=== PATIENT | female | born 1955 | race Two or more races ===

== ENCOUNTER → 2024-03-14 | Outpatient (CLI) | payer OTHER, SELFPAY ==
--- NOTE | 2024-03-14 12:20 | XR_ITS ---
Examination: Bone densitometry Date and time of exam:March 14, 2024 1017 hours INDICATIONS: Menopause age 47 postmenopausal lumbar fracture Technique: Lumbar spine and hip total bone mineralization values of an calculated. Peak reference and age match control results have been displayed. Findings: Lumbar spine total bone mineralization is0.798 gm/cm2. This is 2.3 standard deviations below peak reference. This is 0.4 standard deviations below age-matched controls. Hip total bone mineralization is 0.871 gm/cm2 This is 0.7 standard deviations below peak reference. This is 0.5 standard deviations above age-matched controls Impression: There is osteopenia based on lumbar spine measurements. There is osteopenia based on hip measurements
== END | disposition home or self-care (01) ==
LOC: CDIM 10:03
PROVIDERS: Referring Provider Specialist; Visit Provider Specialist
DX: M85.89 Other specified disorders of bone density and structure, multiple sites (principal)
CPT/HCPCS: 77080

== ENCOUNTER → 2024-04-06 | Outpatient (CLI) | payer OTHER, MEDICAID, SELFPAY ==
--- NOTE | 2024-04-06 10:07 | XR_ITS ---
Examination: PA lateral chest 2 views TECHNIQUE: Upright PA lateral chest 2 views Exam date and time: April 06, 2024 1018 hours Comparison August 12, 2022 INDICATIONS: Preop hysterectomy FINDINGS: Normal heart size Surgical clips right mediastinum Mildly prominent right paratracheal region again noted Increased AP dimension chest on the lateral view Stable probable scarring in the lingular segment obscuring detail left cardiac contour No interval pneumonia or pulmonary edema Prominent osteopenia Subtle 3 cm rounded density at the right cardiophrenic angle IMPRESSION: Subtle 3 cm rounded density at the right cardiophrenic angle, recommend AP lordotic chest follow-up
== END | disposition home or self-care (01) ==
LOC: CDIM 09:56
PROVIDERS: Referring Provider Physician Assistant; Visit Provider Physician Assistant
DX: Z01.818 Encounter for other preprocedural examination (principal)
CPT/HCPCS: 71046

== ENCOUNTER 2024-04-17 03:13 | Emergency (ER) | payer OTHER, MEDICAID, SELFPAY ==
[2024-04-17 03:14] VITALS: BMI 39.0
[2024-04-17 03:23] VITALS: BP 144/90; PULSE 92; RESP 17; TEMP 36.9; O2SAT 98
--- NOTE | 2024-04-17 03:35 | XR_ITS ---
Examination: PA lateral chest 2 views Technique: Upright AP lateral chest 2 views Exam date and time: April 17, 2024 0337 hrs. Comparison April 06, 2024 Indications: Chest pain beginning yesterday afternoon Findings: Normal heart size No lobar pneumonia Moderate thoracic spondylosis On this study the trachea is deviated to the right Impression: No pneumonia or pulmonary edema Consider thyroid sonography follow-up to exclude left thyromegaly shifting the trachea to the right
--- NOTE | 2024-04-17 03:37 | PD.EDRME ---
Rapid Medical Screening Exam RME Arrival date/time: 04/17/24 03:13 68-year-old obese female past medical history of hypertension and hyperlipidemia presents emergency department complaining of cough and chest pain that radiates to the left arm and upper neck that started yesterday. Chief Complaint: Chest Pain Time Seen by Provider: 04/17/24 03:30 Vital signs: Vital Signs Temperature 98.5 F 04/17/24 03:23 Pulse Rate 92 04/17/24 03:23 Respiratory Rate 17 04/17/24 03:23 Blood Pressure 144/90 H 04/17/24 03:23 Pulse Oximetry (%) 98 04/17/24 03:23 Oxygen Delivery Method Room Air 04/17/24 03:23 Vital signs reviewed by provider: Yes
[2024-04-17] MEDS: ACETAMINOPHEN 500 MG TABLET 1000 MG PO (03:53)
[2024-04-17 04:07] LABS: Basophils # (Auto) 0.1 Thou/mm3 (0.0-0.2); Basophils % (Auto) 1 % (0-2.5); Eosinophils # (Auto) 0.3 Thou/mm3 (0.0-0.5); Eosinophils % (Auto) 3 % (0-10); Hematocrit 42.1 % (36.0-46.0); Hemoglobin 13.8 g/dL (12.0-16.0); Immature Granulocytes % (Auto) 0 % (0-0); Immature Granulocytes Auto 0.02 Thou/mm3 (0.00-0.00); Lymphocytes # (Auto) 3.4 Thou/mm3 (1.0-4.8); Lymphocytes % (Auto) 33 % (10-50); Mean Corpuscular HGB Conc 32.8 g/dl (31.0-37.0); Mean Corpuscular Hemoglobin 29.5 pg (25.0-35.0); Mean Corpuscular Volume 90 fL (80-100); Monocytes # (Auto) 0.9 Thou/mm3 (0.0-0.8); Monocytes % (Auto) 8 % (0-12); Neutrophils # (Auto) 5.8 Thou/mm3 (1.8-7.7); Neutrophils % (Auto) 56 % (37-80); Nucleated Red Blood Cell % 0 /100 WBC (0); Platelet Count 243 Thou/mm3 (140-440); RDW Standard Deviation 43.1 fL (36.4-46.3); Red Blood Count 4.68 Miln/mm3 (4.00-5.20); White Blood Count 10.4 Thou/mm3 (3.6-11.0)
[2024-04-17 04:24] LABS: B-Type Natriuretic Peptide < 20 pg/mL (0-100)
[2024-04-17 04:26] LABS: Alanine Aminotransferase 17 U/L (10-49); Albumin, Serum 4.5 gm/dL (3.4-4.8); Albumin/Globulin Ratio 1.4 (1.2-2.2); Alkaline Phosphatase 106 U/L (46-116); Anion Gap 9 (7-16); Aspartate Amino Transferase 22 U/L (0-34); BUN/Creatinine Ratio 22 Ratio (12-20); Bilirubin,Total 0.6 mg/dL (0.3-1.2); Blood Urea Nitrogen 22 mg/dL (9-23); Calcium 9.7 mg/dL (8.3-10.6); Calcium (Corrected) 9.7 mg/dL (8.5-10.1); Chloride 109 mMol/L (98-107); Estimated Creatinine Clearance 55.6 mL/min (>60); Globulin 3.2 gm/dL (2.3-3.5); Glucose 94 mg/dL (74-106); Magnesium 2.2 mg/dL (1.6-2.6); Osmolality,Calculated 292 (275-295); Sodium 145 mMol/L (136-145); Total Protein 7.7 gm/dL (5.7-8.2); Troponin I < 0.020 ng/mL (0.0-0.045); eGFR > 60 See Note
[2024-04-17 06:17] VITALS: BP 136/79; PULSE 79; RESP 16; O2SAT 96
--- NOTE | 2024-04-17 06:18 | EDNOTE_ITS ---
ED Chest Pain RME/HPI General Chief Complaint: Chest Pain Stated Complaint: CHEST AND BACK PAIN X 1 DAY Time Seen by Provider: 04/17/24 03:30 Arrival date/time: 04/17/24 03:13 RME / HPI RME / HPI narrative: 04/17/24 03:13 68-year-old obese female past medical history of hypertension and hyperlipidemia presents emergency department complaining of cough and chest pain that radiates to the left arm and upper neck that started yesterday. This section includes all my notes and documentations, including HPI, PE, and ED course. Tono Hernandes MD HPI: 68-year-old female here with about a week history of worsening cough, productive cough, purulent sputum, and dyspnea. And since yesterday, she reports chest pain and upper back pain especially with coughing. No fever. No other complaints. ROS: All negative except as documented in HPI. Physical Exam: General: Alert and oriented. Hacking cough noted. Eyes: Conjunctivae and lids clear. ENT: No nasal congestion. Pharynx normal. TM normal bilaterally. Neck: Supple. Heart: RRR. Lungs: No respiratory distress. Good air movement with scattered rhonchi. Chest: Palpation of the anterior chest reproduces her pain. Abdomen: Soft and nontender. Normal bowel sounds. No distension. No rebound or guarding. Back: No CVA tenderness. Skin: Warm and dry. Neuro: Alert and oriented X 3. I reviewed all diagnostic test results. My interpretation of the EKG is sinus rhythm with nonspecific ST?T changes. My interpretation of the chest x-ray is increased bronchial markings, official radiology report is pending. Blood tests and urine tests unremarkable, including negative troponin. At this point, diagnoses include bronchitis. Treatment here included Zithromax. Significant improvement Recommended more outpatient cardiac workup. Based on my best medical judgment, made decision no further evaluation or treatment indicated at this time. Patient understands and agrees to the discharge instructions customized and printed, see below. Discharge instructions from Dr. Hernandes: --After evaluation, there is no life-threatening condition such as heart attack. You have bronchitis, infection of the airways. --No physical exertion for 3 days to help rest the lungs. ?-No smoking or exposure to smoking or pets or dust or cold or humidity. --Zithromax to kill the germs causing the bronchitis. --Prednisone to help decrease the swelling in the airways. --See a private doctor on 04/19/2024 for recheck. To make sure there is no serious underlying heart condition, ask to help you get more tests for your heart that cannot be done here in the ER. Such as Holter Monitor (cardiac monitoring at home from a day to even a month), heart stress test (on treadmill or with medication), echocardiogram (imaging of your heart structures), heart catherization (checking for blockages in your heart arteries), and a referral to see a [employer] Crossing Protection Maintainer. --Seek immediate medical care with worsening or with any concerns. Tono Hernandes MD Related Data Home Medications ?Medication ?Instructions ?Recorded ?Confirmed atorvastatin 10 mg tablet 10 mg PO QPM 10/20/18 12/20/21 levothyroxine 112 mcg tablet 112 mcg PO QDAY 10/20/18 12/20/21 lisinopril 20 mg tablet 20 mg PO QDAY 10/20/18 12/20/21 nabumetone 500 mg tablet 500 mg PO BID 10/20/18 12/20/21 Previous Rx's ?Medication ?Instructions ?Recorded hydrocodone 5 mg-acetaminophen 325 1 tab PO BID PRN pain #10 tabs 08/12/22 mg tablet azithromycin 500 mg tablet 500 mg PO QDAY 3 days #3 tabs 04/17/24 (Zithromax TRI-ANNETTE) prednisone 20 mg tablet 40 mg PO DAILY 3 days #6 tabs 04/17/24 Allergies Allergy/AdvReac Type Severity Reaction Status Date / Time Penicillins Allergy Severe DIFF Verified 12/09/23 18:26 BREATHING, RASH Review of Systems Review of Systems Systems Reviewed: All systems reviewed, normal except as documented Past Medical History Past Medical History NEUROLOGIC: Negative Neurological Disorders or Seizures CARDIAC: Positive Cardiac Disorders, Hypercholesterolemia and Hypertension RESPIRATORY: Negative Chronic Obstructive Pulmonary Disease (COPD) GASTROINTESTINAL: Positive Gastrointestinal Disorders, Gall Bladder Disease, Gastrointestinal Bleed, Ulcer, Gastroesophageal Reflux Disease and Obesity GENITOURINARY: Negative Genitourinary Disorders or Renal Disease REPRODUCTIVE: Positive Previous Pregnancies MUSCULOSKELETAL: Positive Musculoskeletal Disorders and Arthritis ENDOCRINE: Positive Endocrine Disorders and Hyperthyroidism HEMATOLOGIC: Negative Blood Disorders OTHER HISTORY: Positive Measles Family History FAMILY HISTORY: Positive Family Cardiac Disorders; Negative Family Neurologic Problems Surgical History SURGICAL: Positive Joint Replacement and Tubal Ligation; Negative Cardiac Surgery Social History SMOKING STATUS: Never smoker ED Exam Narrative Physical exam: As noted in HPI Course Course Course Narrative: chest xray ordered to help determine etiology of cough. Quality Measures none Orders Category Date Time Status Bedside Influenza A&B Antigen Test NOW Care 04/17/24 03:35 Completed EKG (ED ONLY) *Do not use* NOW Care 04/17/24 03:35 Completed Straight [In and Out Catheter] X1 Care 04/17/24 06:17 Active EKG (ED Only) Stat Exams 04/17/24 03:35 Ordered XR chest 2V Stat Exams 04/17/24 03:35 Taken B-Type Natriuretic Peptide Stat Lab 04/17/24 03:49 Completed CBC Stat Lab 04/17/24 03:49 Completed Comprehensive Metabolic Panel Stat Lab 04/17/24 03:49 Completed Magnesium Stat Lab 04/17/24 03:49 Completed Partial Thromboplastin Time Stat Lab 04/17/24 03:49 Completed Prothrombin Time with INR Stat Lab 04/17/24 03:49 Completed Troponin I Stat Lab 04/17/24 03:49 Completed Urinalysis Stat Lab 04/17/24 05:44 Completed Acetaminophen Tab [Tylenol ES Tab] Med 04/17/24 03:37 Discontinued 1,000 mg PO X1 ONE Azithromycin Po [Zithromax PO] Med 04/17/24 07:18 Discontinued 500 mg PO X1 ONE Morphine Inj Med 04/17/24 06:19 Discontinued 2 mg IVP X1 ONE Morphine Inj Med 04/17/24 07:53 Discontinued 2 mg IVP X1 ONE Vital Signs Vital signs: Vital Signs Temperature 98.5 F 04/17/24 03:23 Pulse Rate 92 04/17/24 03:23 Respiratory Rate 17 04/17/24 03:23 Blood Pressure 144/90 H 04/17/24 03:23 Pulse Oximetry (%) 98 04/17/24 03:23 Oxygen Delivery Method Room Air 04/17/24 03:23 Pulse ox is 98% on room air which is adequate. Chest Pain Patient data External records reviewed:: [facility] previous records (I reviewed ED visit on 12/09/2023) Clinical information provided by:: patient Social determinants that could affect healthcare access:: none Patient has the following chronic illnesses:: Hypertension, hyperlipidemia, hypothyroidism How is presenting disease/condition affected by chronic disease/condition?: exacerbated by Evaluation data The following diagnostics were reviewed and interpreted by me:: lab results, radiology exam(s) and EKG tracing(s) (My interpretation of the EKG is: Sinus rhythm (95 bpm) with nonspecific ST-T changes. Tono Hernandes MD) Lab and/or radiology exams considered but not ordered:: None Interpretation Summary: My interpretation of the chest x-ray is increased bronchial markings, official radiology report is pending. Medications / Prescriptions Medications or Prescriptions considered but not ordered:: None Medication administrations:: Medication Administration History Discontinued Medications Acetaminophen (Acetaminophen 500 Mg Tablet) 1,000 mg PO X1 ONE Stop: 04/17/24 03:38 Last Admin: 04/17/24 03:53 Dose: 1,000 mg Documented By: SE Azithromycin (Azithromycin 250 Mg Tablet) 500 mg PO X1 ONE Stop: 04/17/24 07:19 Morphine Sulfate (Morphine Sulf Inj 10 Mg/Ml Vial) 2 mg IVP X1 ONE Stop: 04/17/24 06:20 Last Admin: 04/17/24 06:31 Dose: 2 mg Documented By: KG Morphine Sulfate (Morphine Sulf Inj 10 Mg/Ml Vial) 2 mg IVP X1 ONE Stop: 04/17/24 07:54 See above Consultations Consultation(s) initiated? (list below): No Diagnosis Most likely diagnosis given after review of the tests above:: Bronchitis Admission Indicated Admission indicated?: not indicated Explain why admission is indicated or not indicated:: Does not meet admission criteria Admission Request Was there a request for admission?: No Disposition Plan Disposition Plan: Discharge Discharge Attestation Discharge Attestation: The patient and all family members were given an opportunity to ask questions and understood the discharge instructions. Discharge instructions specifically effects, indications for sooner follow up or return to the emergency department, and the expected course of current diagnosis. Patient condition: Stable Discharge Plan Plan Patient Disposition: HOME (Self Care) Prescriptions/Referrals Prescriptions/Med Rec: New prednisone 20 mg tablet 40 mg PO DAILY 3 Days Qty: 6 0RF Taper: Prednisone Taper 20 mg DAILY for 2 Days and 0 Hour 10 mg DAILY for 2 Days and 0 Hour 5 mg DAILY for 7 Days and 0 Hour azithromycin [Zithromax TRI-ANNETTE] 500 mg tablet 500 mg PO QDAY 3 Days Qty: 3 0RF No Action atorvastatin 10 mg Tablet 10 mg PO QPM lisinopril 20 mg Tablet 20 mg PO QDAY levothyroxine 112 mcg Tablet 112 mcg PO QDAY nabumetone 500 mg Tablet 500 mg PO BID hydrocodone-acetaminophen 5-325 mg tablet 1 tab PO BID MDD 10 PRN (Reason: pain) Qty: 10 0RF Problem List Clinical Impression: Bronchitis Patient/Caregiver Discharge Instructions Discharge Activity: activity as tolerated Education Materials: ED Bronchitis with Wheezing (Adult) Additional Instructions: Discharge instructions from Dr. Hernandes: --After evaluation, there is no life-threatening condition such as heart attack. You have bronchitis, infection of the airways. --No physical exertion for 3 days to help rest the lungs. ?-No smoking or exposure to smoking or pets or dust or cold or humidity. --Zithromax to kill the germs causing the bronchitis. --Prednisone to help decrease the swelling in the airways. --See a private doctor on 04/19/2024 for recheck. To make sure there is no serious underlying heart condition, ask to help you get more tests for your heart that cannot be done here in the ER. Such as Holter Monitor (cardiac monitoring at home from a day to even a month), heart stress test (on treadmill or with medication), echocardiogram (imaging of your heart structures), heart catherization (checking for blockages in your heart arteries), and a referral to see a [employer] Crossing Protection Maintainer. --Seek immediate medical care with worsening or with any concerns. Instrucciones de jaylon del Dr. Hernandes: --Despu?s de la evaluaci?n, no hay ninguna afecci?n que ponga en peligro la keron, dougie un ataque card?aco. Tiene bronquitis, infecci?n de las v?as respiratorias. --No thor leonel?n esfuerzo f?sico nathan 3 d?as para ayudar a que los pulmones descansen. --No fume ni se exponga al humo, a las mascotas, al polvo, al fr?o o a la humedad. --Zithromax para matar los g?rmenes que causan la bronquitis. --Prednisona para ayudar a disminuir la hinchaz?n de las v?as respiratorias. --Michael a un m?dico privado el 12/10/2024 para que lo vuelvan a controlar. Para asegurarse de que no haya gaurav afecci?n card?brandon subyacente grave, pida ayuda para que le kianna m?s pruebas para el coraz?n que no se pueden hacer aqu? en la sol de emergencias, dougie un monitor Holter (monitoreo card?aco en el hogar desde un d?a hasta un mes), gaurav prueba de esfuerzo card?aco (en gaurav cinta de correr o con medicaci?n), un ecocardiograma (im?genes de las estructuras del coraz?n), un cateterismo card?aco (para comprobar si hay obstrucciones en las arterias del coraz?n) y gaurav derivaci?n para morena a un cardi?logo. --Busque atenci?n m?dica inmediata si la enfermedad empeora o tiene alguna inquietud. Print Language: [place] Stand Alone Forms: Dominique Award Info., Patient Portal Info Letter
[2024-04-17] MEDS: MORPHINE SULF INJ 10 MG/ML VIAL 2 MG IVP ×2 (06:31→08:09)
[2024-04-17 06:50] LABS: Collection Type, Urine Clean Catch
[2024-04-17 06:59] VITALS: TEMP 36.6
[2024-04-17 07:23] LABS: INR 1.1 (0.9-1.3); Partial Thromboplastin Time 32.1 Seconds (22.0-36.0); Prothrombin Time 11.6 Seconds (9.0-12.2)
[2024-04-17 07:41] LABS: Bacteria,Urine Rare; Bilirubin,Urine Negative (Negative); Blood,Urine Trace (Negative); Clarity,Urine Clear (Clear/Hazy); Color,Urine Yellow (Lt Yel-Yel); Glucose, Urine Negative (Negative); Hyaline Casts,Urine < 1 /hpf (0-1); Ketones,Urine Negative (Negative); Leukocyte Esterase,Urine Positive (Negative); Nitrite,Urine Negative (Negative); PH,Urine 5.5 (5.0-7.0); Protein,Urine Negative (Neg - Trace); RBC,Urine 6 /hpf (0-3); Specific Gravity,Urine 1.024 (1.001-1.035); Squamous Epithelial Cell,Urine 6 /hpf (0-5); Urobilinogen,Urine Negative mg/dL (0.0-1.0); WBC,Urine 21 /hpf (0-5)
--- NOTE | 2024-04-17 07:52 | PC.NURSE ---
Patient states pain 8/10. Informed ER provider and received verbal order for 2 mg morphine IV.
[2024-04-17] MEDS: AZITHROMYCIN 250 MG TABLET 500 MG PO (08:08)
== END 2024-04-17 08:46 | disposition home or self-care (01) ==
PROVIDERS: Emergency Provider Emergency Medicine
DX: J40 Bronchitis, not specified as acute or chronic (principal); E78.5 Hyperlipidemia, unspecified; I10 Essential (primary) hypertension
CPT/HCPCS: 36415; 71046; 80053; 81001; 83735; 83880; 84484; 85025; 85610; 85730; 87400; 93005; 96374; 96376; 99285; J2270; A9270

== ENCOUNTER → 2024-05-31 | Outpatient (CLI) | payer OTHER, MEDICAID, SELFPAY ==
--- NOTE | 2024-05-31 10:15 | XR_ITS ---
Examination: Thyroid sonography complete TECHNIQUE: Grayscale sonographic images thyroid lobes Exam date and time: May 31, 2024 1020 hours INDICATIONS: Chest x-ray April 17, 2024 deviation trachea to the right, consider thyromegaly FINDINGS: Right thyroid 2.7 x 1.1 x 1.3 cm No thyroid 3.0 x 1.1 x 0.9 cm No thyroid nodules IMPRESSION: Negative for thyromegaly Consider follow-up CT chest post intravenous contrast to assess etiology of the tracheal deviation
== END | disposition home or self-care (01) ==
LOC: CDIM 10:03
PROVIDERS: PCP Family Medicine; Referring Provider Obstetrics & Gynecology; Visit Provider Obstetrics & Gynecology
DX: J39.8 Other specified diseases of upper respiratory tract (principal)
CPT/HCPCS: 76536

== ENCOUNTER 2024-06-24 11:34 | Emergency (ER) | payer OTHER, MEDICAID, SELFPAY ==
[2024-06-24 11:35] VITALS: BMI 39.0
[2024-06-24 11:39] VITALS: BP 139/76; PULSE 77; RESP 20; TEMP 37.1; O2SAT 97
--- NOTE | 2024-06-24 11:45 | XR_ITS ---
Examination: PA lateral chest 2 views Technique: Upright PA lateral chest 2 views Exam date and time: June 24, 2024 1137 hrs. Indications: Coughing beginning 3 days ago. Findings: Normal heart size No pneumonia identified Moderate osteopenia Impression: No pneumonia identified
--- NOTE | 2024-06-24 11:45 | EKG_ITS ---
[facility] Test Date: 2024-06-24 Pat Name: JESUS MALONEY Department: Room: - Gender: Female Vapor Coater: : 1955 Requested By: Joe Freedman Order Number: [id number] Reading MD: Joe Freedman Measurements Intervals [place] Rate: 79 P: -3 IN: 133 QRS: -6 QRSD: 99 T: 65 QT: 315 QTc: 363 Interpretive Statements SINUS RHYTHM MODERATE VOLTAGE CRITERIA FOR LVH, CONSIDER NORMAL VARIANT [MEETS CRITERIA IN ONE OF: R(aVL), S(V1), R(V5), R(V5/V6)+S(V1)] NONSPECIFIC T-WAVE ABNORMALITY Compared to ECG 12/09/2023 18:55:30 T-wave abnormality now present Intraventricular conduction delay no longer present /store/S0/[id number]/[id number].pdf
--- NOTE | 2024-06-24 11:46 | PD.EDRME ---
Rapid Medical Screening Exam RME Arrival date/time: 06/24/24 11:34 68-year-old female with a history of hypertension, hypothyroidism and hyperlipidemia presents to the emergency room with a chief complaint of 8 out of 10 sternal chest pain and shortness of breath x 1 day I have greeted and performed a focused initial assessment of this patient. A comprehensive ED assessment and evaluation of the patient, analysis of all test results, and completion of the medical decision making process will be conducted by additional ED providers. Chief Complaint: Shortness of Breath/Dyspnea Vital signs: Vital Signs Temperature 98.8 F 06/24/24 11:39 Pulse Rate 77 06/24/24 11:39 Respiratory Rate 20 06/24/24 11:39 Blood Pressure 139/76 H 06/24/24 11:39 Pulse Oximetry (%) 97 06/24/24 11:39 Oxygen Delivery Method Room Air 06/24/24 11:39 Vital signs reviewed by provider: Yes
[2024-06-24 12:36] LABS: Basophils % (Auto) 1 % (0-2.5); Eosinophils # (Auto) 0.1 Thou/mm3 (0.0-0.5); Eosinophils % (Auto) 1 % (0-10); Hematocrit 40.9 % (36.0-46.0); Hemoglobin 13.7 g/dL (12.0-16.0); Immature Granulocytes % (Auto) 0 % (0-0); Immature Granulocytes Auto 0.01 Thou/mm3 (0.00-0.00); Lymphocytes # (Auto) 2.7 Thou/mm3 (1.0-4.8); Lymphocytes % (Auto) 33 % (10-50); Mean Corpuscular HGB Conc 33.5 g/dl (31.0-37.0); Mean Corpuscular Hemoglobin 29.6 pg (25.0-35.0); Mean Corpuscular Volume 88 fL (80-100); Monocytes # (Auto) 1.3 Thou/mm3 (0.0-0.8); Monocytes % (Auto) 16 % (0-12); Neutrophils # (Auto) 3.9 Thou/mm3 (1.8-7.7); Neutrophils % (Auto) 49 % (37-80); Nucleated Red Blood Cell % 0 /100 WBC (0); Platelet Count 223 Thou/mm3 (140-440); RDW Standard Deviation 39.8 fL (36.4-46.3); Red Blood Count 4.63 Miln/mm3 (4.00-5.20)
[2024-06-24 12:41] LABS: Collection Type, Urine Clean Catch
[2024-06-24 12:53] LABS: B-Type Natriuretic Peptide 22 pg/mL (0-100)
[2024-06-24 12:55] LABS: Bilirubin,Urine Negative (Negative); Blood,Urine Trace (Negative); Clarity,Urine Clear (Clear/Hazy); Color,Urine Lt-Yellow (Lt Yel-Yel); Glucose, Urine Negative (Negative); Ketones,Urine Negative (Negative); Leukocyte Esterase,Urine Negative (Negative); Nitrite,Urine Negative (Negative); Protein,Urine Negative (Neg - Trace); RBC,Urine 1 /hpf (0-3); Specific Gravity,Urine 1.008 (1.001-1.035); Squamous Epithelial Cell,Urine < 1 /hpf (0-5); Urobilinogen,Urine Negative mg/dL (0.0-1.0); WBC,Urine 1 /hpf (0-5)
[2024-06-24 12:56] LABS: Alanine Aminotransferase 18 U/L (10-49); Albumin, Serum 4.1 gm/dL (3.4-4.8); Albumin/Globulin Ratio 1.4 (1.2-2.2); Alkaline Phosphatase 85 U/L (46-116); Anion Gap 10 (7-16); Aspartate Amino Transferase 18 U/L (0-34); BUN/Creatinine Ratio 11 Ratio (12-20); Blood Urea Nitrogen 10 mg/dL (9-23); Carbon Dioxide 25.6 mMol/L (20.0-31.0); Chloride 105 mMol/L (98-107); Creatinine (Component) 0.9 mg/dL (0.6-1.3); Estimated Creatinine Clearance 61.7 mL/min (>60); Globulin 2.9 gm/dL (2.3-3.5); Glucose 90 mg/dL (74-106); Osmolality,Calculated 280 (275-295); Potassium 3.3 mMol/L (3.4-5.1); Sodium 141 mMol/L (136-145); Troponin I < 0.020 ng/mL (0.0-0.045); eGFR > 60 See Note
--- NOTE | 2024-06-24 14:01 | PD.EDSOB ---
ED SOB =RME/HPI General Chief Complaint: Shortness of Breath/Dyspnea Stated Complaint: SOB SINCE YESTERDAY, CHEST PAIN, COUGH Time Seen by Provider: 06/24/24 11:55 Arrival date/time: 06/24/24 11:34 This is a 68-year-old female that comes in with complaints of cough, shortness of breath, sore throat that started since yesterday. Patient has a past medical history of high blood pressure, and hyperlipidemia. RME / HPI RME / HPI Narrative: 06/24/24 11:34 68-year-old female with a history of hypertension, hypothyroidism and hyperlipidemia presents to the emergency room with a chief complaint of 8 out of 10 sternal chest pain and shortness of breath x 1 day I have greeted and performed a focused initial assessment of this patient. A comprehensive ED assessment and evaluation of the patient, analysis of all test results, and completion of the medical decision making process will be conducted by additional ED providers. Related Data Home Medications ?Medication ?Instructions ?Recorded ?Confirmed atorvastatin 10 mg tablet 10 mg PO QPM 10/20/18 12/20/21 levothyroxine 112 mcg tablet 112 mcg PO QDAY 10/20/18 12/20/21 lisinopril 20 mg tablet 20 mg PO QDAY 10/20/18 12/20/21 nabumetone 500 mg tablet 500 mg PO BID 10/20/18 12/20/21 Previous Rx's ?Medication ?Instructions ?Recorded hydrocodone 5 mg-acetaminophen 325 1 tab PO BID PRN pain #10 tabs 08/12/22 mg tablet albuterol sulfate 90 mcg/actuation 2 puff inhalation QID PRN 06/24/24 aerosol inhaler shortness of breath or wheezing #8.5 grams ibuprofen 800 mg tablet 800 mg PO Q6H PRN pain #10 tabs 06/24/24 promethazine-DM 6.25 mg-15 mg/5 mL 5 ml PO Q6H PRN cough #118 mL 06/24/24 oral syrup Allergies Allergy/AdvReac Type Severity Reaction Status Date / Time Penicillins Allergy Severe DIFF Verified 06/24/24 11:34 BREATHING, RASH Course Orders Category Date Time Status Bedside COVID-19 Antigen Test NOW Care 06/24/24 11:45 Active Bedside Influenza A&B Antigen Test NOW Care 06/24/24 11:45 Completed EKG (ED ONLY) *Do not use* NOW Care 06/24/24 11:45 Completed EKG (ED Only) Stat Exams 06/24/24 11:45 Draft XR chest 2V Stat Exams 06/24/24 11:45 Completed B-Type Natriuretic Peptide Stat Lab 06/24/24 12:30 Completed CBC Stat Lab 06/24/24 12:30 Completed Comprehensive Metabolic Panel Stat Lab 06/24/24 12:30 Completed Magnesium Stat Lab 06/24/24 12:30 Completed Troponin I Stat Lab 06/24/24 12:30 Completed Urinalysis Stat Lab 06/24/24 12:30 Completed Dexamethasone Inj [Decadron Inj] Med 06/24/24 14:14 Discontinued 10 mg PO X1 ONE Ketorolac Inj [Toradol Inj] Med 06/24/24 14:14 Discontinued 60 mg IM X1 ONE Promethazine/Dextromethorph [Phenergan Dm Syrup] Med 06/24/24 14:14 Discontinued 5 ml PO X1 ONE Vital Signs Vital signs: Vital Signs Temperature 98.8 F 06/24/24 11:39 Pulse Rate 77 06/24/24 11:39 Respiratory Rate 20 06/24/24 11:39 Blood Pressure 139/76 H 06/24/24 11:39 Pulse Oximetry (%) 97 06/24/24 11:39 Oxygen Delivery Method Room Air 06/24/24 11:39 Procedures -ED EKG Interpretation #1: Date of EK06/24/24 Time of EK:55 Rate: 79 Interpretation: Interpreted by me (sinus rhythm flattening of some t waves in lateral leads ) EKG Impression: No ectopy, Normal QRS and Normal intervals Shortness of Breath / Dyspnea MDM Narrative MDM Narrative:: Labs reviewed CBC unremarkable. BMP potassium slightly low 3.3 otherwise unremarkable troponin was less than 0.020 BNP was 22 urine unremarkable chest x-ray showed no acute disease process. Patient states it is sometimes hard to breathe. She has a hard time catching her breath. Will send her home with an inhaler. Patient given a dose of Decadron here in the emergency room, along with Toradol IM and Promethazine DM. Patient feels better at this time. Will discharge patient home. Patient told to follow-up with primary provider in 1 to 2 days. Come back to emergency room if symptoms change or worsen. Medications / Prescriptions Medication administrations:: Medication Administration History Discontinued Medications Dexamethasone Sodium Phosphate (Dexamethasone Sod Phos Inj 10 Mg/Ml Vial) 10 mg PO X1 ONE Stop: 06/24/24 14:15 Last Admin: 06/24/24 14:37 Dose: 10 mg Documented By: HARPAL Ketorolac Tromethamine (Ketorolac Inj 60 Mg/2 Ml Vial) 60 mg IM X1 ONE Stop: 06/24/24 14:15 Last Admin: 06/24/24 14:37 Dose: 60 mg Documented By: HARPAL Promethazine HCl/Dextromethorphan (Promethazine/Dm Syrup 5 Ml Dose) 5 ml PO X1 ONE; Protocol Stop: 06/24/24 14:15 Last Admin: 06/24/24 14:37 Dose: 5 ml Documented By: HARPAL Discharge Plan Plan Patient Disposition: HOME (Self Care) Patient condition on transfer: Stable Prescriptions/Referrals Prescriptions/Med Rec: New promethazine-DM 6.25-15 mg/5 mL syrup 5 ml PO Q6H PRN (Reason: cough) Qty: 118 0RF ibuprofen 800 mg tablet 800 mg PO Q6H PRN (Reason: pain) Qty: 10 0RF albuterol sulfate 90 mcg/actuation HFA aerosol inhaler 2 puff inhalation QID PRN (Reason: shortness of breath or wheezing) Qty: 8.5 0RF No Action atorvastatin 10 mg Tablet 10 mg PO QPM lisinopril 20 mg Tablet 20 mg PO QDAY levothyroxine 112 mcg Tablet 112 mcg PO QDAY nabumetone 500 mg Tablet 500 mg PO BID hydrocodone-acetaminophen 5-325 mg tablet 1 tab PO BID MDD 10 PRN (Reason: pain) Qty: 10 0RF Referrals: [place] [Primary Care Provider] - In 1 week Problem List Clinical Impression: RAD (reactive airway disease), Cough, URI (upper respiratory infection) Patient/Caregiver Discharge Instructions Discharge Activity: activity as tolerated Education Materials: ED Inhaler Use, ED URI, Viral, No Abx (Adult) Additional Instructions: Daniella un alysia con jaime medico de cabecera en las proximas 24-48 horas. Regrese a la sol de emergencias si hay evidencia de que los signos o sintomas empeoran. Print Language: Frisian Stand Alone Forms: Dominique Award Info., Patient Portal Info Letter PA/RAILROAD FIRER/FIREMAN Supervising Physician PA/RAILROAD FIRER/FIREMAN Supervising Physician: Rosey
[2024-06-24 14:31] VITALS: BP 136/78; PULSE 73; RESP 18; TEMP 36.4; O2SAT 97
[2024-06-24] MEDS: PROMETHAZINE/DM SYRUP 5 ML DOSE PO (14:37)
[2024-06-24] MEDS: KETOROLAC INJ 60 MG/2 ML VIAL IM (14:37)
[2024-06-24] MEDS: DEXAMETHASONE SOD PHOS INJ 10 MG/ML VIAL PO (14:37)
[2024-06-24 16:05] VITALS: BP 133/93; PULSE 71; RESP 20; TEMP 36.7; O2SAT 97
[2024-06-24 16:26] VITALS: BP 133/93; PULSE 73; RESP 19; TEMP 36.6; O2SAT 99
== END 2024-06-24 16:45 | disposition home or self-care (01) ==
PROVIDERS: Nurse Practitioner Family; Emergency Provider Emergency Medicine; PCP Physician Assistant
DX: J45.909 Unspecified asthma, uncomplicated (principal); J06.9 Acute upper respiratory infection, unspecified; E78.5 Hyperlipidemia, unspecified; I10 Essential (primary) hypertension; E03.9 Hypothyroidism, unspecified
CPT/HCPCS: 36415; 71046; 80053; 81001; 83735; 83880; 84484; 85025; 87400; 87811; 93005; 96372; 99283; J1100; J1885; A9270

== ENCOUNTER → 2024-11-08 | Outpatient (CLI) | payer OTHER, MEDICAID, SELFPAY ==
--- NOTE | 2024-11-08 12:53 | XR_ITS ---
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
== END | disposition home or self-care (01) ==
LOC: CDIM 12:36
PROVIDERS: PCP Family Medicine; Referring Provider Physician Assistant; Visit Provider Physician Assistant
DX: M17.12 Unilateral primary osteoarthritis, left knee (principal); G89.29 Other chronic pain
CPT/HCPCS: 73562

== ENCOUNTER → 2024-11-16 | Outpatient (CLI) | payer MEDICARE, SELFPAY ==
--- NOTE | 2024-11-16 11:30 | XR_ITS ---
Examination: Screening digital mammography, bilateral Computer aided detection 3-D breast Tomosynthesis, bilateral Date and time of exam: November 26, 2024 1014 hours Compared to mammograms dating to January 28, 2010 Indication: Screening Technique: Nonmagnified MLO, CC views of the breasts to been obtained, reconstructed from 3-D Tomosynthesis images. R2 computer aided detection program utilized for evaluation of suspicious masses and/or abnormal calcifications. 3-D Tomosynthesis images obtained. Findings: Scattered areas of fibroglandular density. Benign calcifications. No interval suspicious masses Impression: BI-RADS category II: Benign Findings. Recommend 1 year follow-up mammogram.
== END | disposition home or self-care (01) ==
PROVIDERS: PCP Physician Assistant; Referring Provider Physician Assistant; Visit Provider Physician Assistant
DX: Z12.31 Encounter for screening mammogram for malignant neoplasm of breast (principal); R92.323 Mammographic fibroglandular density, bilateral breasts; R92.1 Mammographic calcification found on diagnostic imaging of breast
CPT/HCPCS: 77063; 77067

== ENCOUNTER 2025-02-02 23:43 | Emergency (ER) | payer MEDICARE, MEDICAID, SELFPAY ==
--- NOTE | 2025-02-02 23:45 | EKG_ITS ---
[facility] Test Date: 2025-02-02 Pat Name: JESUS MALONEY Department: Room: - Gender: Female [employer]ist: : [id number] Requested By: ED Temporary Provider Order Number: [id number] Reading MD: ED Temporary Provider Measurements Intervals [place] Rate: 74 P: 44 CA: 163 QRS: 27 QRSD: 105 T: 72 QT: 339 QTc: 378 Interpretive Statements SINUS RHYTHM NONSPECIFIC T-WAVE ABNORMALITY Compared to ECG 06/24/2024 11:55:29 No significant changes /store/[id number].pdf
[2025-02-02 23:55] VITALS: BP 124/80; PULSE 73; RESP 20; TEMP 36.8; O2SAT 100
--- NOTE | 2025-02-03 00:01 | XR_ITS ---
EXAMINATION: PA chest single view TECHNIQUE: Upright PA chest single view Date and time: February 03, 2025, 0042 hours INDICATIONS: Chest pain radiating to left arm beginning 1 hour ago FINDINGS: Normal heart size No lobar pneumonia The osseous structures are intact IMPRESSION: No pneumonia or pulmonary edema
--- NOTE | 2025-02-03 00:02 | PD.EDRME ---
Rapid Medical Screening Exam E Arrival date/time: 02/02/25 23:43 This is a case of 69-year-old female with no medical history came in in the emergency room due to chest pain palpitation shortness of breath today persistence of the symptoms this patient decided to start consult here in the emergency room Chief Complaint: Chest Pain Time Seen by Provider: 02/03/25 00:01 Vital signs: Vital Signs Temperature 98.3 F 02/02/25 23:55 Pulse Rate 73 02/02/25 23:55 Respiratory Rate 20 02/02/25 23:55 Blood Pressure 124/80 02/02/25 23:55 Pulse Oximetry (%) 100 02/02/25 23:55 Oxygen Delivery Method Room Air 02/02/25 23:55 Exam: Patient is awake alert oriented not in distress nontoxic looking lungs sound is clear heart normal rate regular rhythm no murmur Clinical Impression: Chest pain
[2025-02-03 01:00] LABS: Basophils # (Auto) 0.0 Thou/mm3 (0.0-0.2); Basophils % (Auto) 0 % (0-2.5); Eosinophils # (Auto) 0.2 Thou/mm3 (0.0-0.5); Eosinophils % (Auto) 2 % (0-10); Hematocrit 39.8 % (36.0-46.0); Hemoglobin 13.0 g/dL (12.0-16.0); Immature Granulocytes Auto 0.01 Thou/mm3 (0.00-0.00); Lymphocytes # (Auto) 3.1 Thou/mm3 (1.0-4.8); Lymphocytes % (Auto) 33 % (10-50); Mean Corpuscular HGB Conc 32.7 g/dl (31.0-37.0); Mean Corpuscular Hemoglobin 28.7 pg (25.0-35.0); Mean Corpuscular Volume 88 fL (80-100); Monocytes # (Auto) 0.7 Thou/mm3 (0.0-0.8); Monocytes % (Auto) 8 % (0-12); Neutrophils # (Auto) 5.1 Thou/mm3 (1.8-7.7); Neutrophils % (Auto) 56 % (37-80); Nucleated Red Blood Cell # 0.00 Thou/mm3 (0.00-0.00); Nucleated Red Blood Cell % 0 /100 WBC (0); Platelet Count 216 Thou/mm3 (140-440); RDW Standard Deviation 41.3 fL (36.4-46.3); Red Blood Count 4.53 Miln/mm3 (4.00-5.20); White Blood Count 9.2 Thou/mm3 (3.6-11.0)
[2025-02-03 01:15] LABS: D-Dimer < 250 ng/mL (<600)
[2025-02-03 01:17] LABS: Collection Type, Urine Clean Catch
[2025-02-03 01:20] LABS: Bilirubin,Urine Negative (Negative); Blood,Urine Negative (Negative); Clarity,Urine Clear (Clear/Hazy); Color,Urine Lt-Yellow (Lt Yel-Yel); Glucose, Urine Negative (Negative); Ketones,Urine Negative (Negative); Leukocyte Esterase,Urine Positive (Negative); Nitrite,Urine Negative (Negative); PH,Urine 6.5 (5.0-7.0); Protein,Urine Negative (Neg - Trace); RBC,Urine 2 /hpf (0-3); Specific Gravity,Urine 1.022 (1.001-1.035); Squamous Epithelial Cell,Urine 1 /hpf (0-5); Urobilinogen,Urine Negative mg/dL (0.0-1.0); WBC,Urine 3 /hpf (0-5)
[2025-02-03 01:24] LABS: Alanine Aminotransferase 17 U/L (10-49); Albumin, Serum 4.3 gm/dL (3.4-4.8); Albumin/Globulin Ratio 1.9 (1.2-2.2); Alkaline Phosphatase 103 U/L (46-116); Anion Gap 11 (7-16); Aspartate Amino Transferase 18 U/L (0-34); BUN/Creatinine Ratio 25 Ratio (12-20); Bilirubin,Total 0.4 mg/dL (0.3-1.2); Blood Urea Nitrogen 20 mg/dL (9-23); Calcium 8.7 mg/dL (8.3-10.6); Calcium (Corrected) 8.7 mg/dL (8.5-10.1); Carbon Dioxide 27.8 mMol/L (20.0-31.0); Chloride 104 mMol/L (98-107); Creatinine (Component) 0.8 mg/dL (0.6-1.3); Globulin 2.3 gm/dL (2.3-3.5); Glucose 114 mg/dL (74-106); Osmolality,Calculated 288 (275-295); Potassium 3.2 mMol/L (3.4-5.1); Sodium 143 mMol/L (136-145); Total Protein 6.6 gm/dL (5.7-8.2); Troponin I < 0.020 ng/mL (0.0-0.045); eGFR > 60 See Note
[2025-02-03 01:30] LABS: B-Type Natriuretic Peptide < 20 pg/mL (0-100)
[2025-02-03 03:37] VITALS: BP 132/90; PULSE 75; RESP 19; TEMP 36.7; O2SAT 97
--- NOTE | 2025-02-03 03:52 | EDNOTE_ITS ---
ED Chest Pain RME/HPI General Chief Complaint: Chest Pain Stated Complaint: HEADACHE, CHEST PAIN, LEFT ARM PAIN Time Seen by Provider: 02/03/25 00:01 Arrival date/time: 02/02/25 23:43 RME / HPI RME / HPI narrative: 02/02/25 23:43 This is a case of 69-year-old female with no medical history came in in the emergency room due to chest pain palpitation shortness of breath today persistence of the symptoms this patient decided to start consult here in the emergency room DR. FOURNIER MAIN ED EVALUATION: Patient without preexisting cardiac disease now presents with episodic chest pain lasting approximately 15 minutes of intermittent nature. Notes pressure- like anterior chest discomfort with radiation to LUE. Chest pain tends to alleviate with activity and there is no pleuritic component. Cardiac Risk Factors: Positive HTN and Hypercholesterolemia, Negative DM, Tobacco or FHx of cardiac disorders. PMH: HTN, Hypercholesterolemia, Gastritis PSH: Lung Surgery, Cholecystectomy, Tubal Ligation Allergies: Penicillin Social: Non-smoker, Non-drinker, No illicit drug abuse Exam: Patient is awake alert oriented not in distress nontoxic looking lungs sound is clear heart normal rate regular rhythm no murmur Impression: Chest pain Related Data Home Medications ?Medication ?Instructions ?Recorded ?Confirmed atorvastatin 10 mg tablet 10 mg PO QPM 10/20/18 levothyroxine 112 mcg tablet 112 mcg PO QDAY 10/20/18 12/20/21 lisinopril 20 mg tablet 20 mg PO QDAY 10/20/1812/20 nabumetone 500 mg tablet 500 mg PO BID 10/20/1812/20 Previous Rx's ?Medication ?Instructions ?Recorded hydrocodone 5 mg-acetaminophen 325 1 tab PO BID PRN pa in #10 tabs 08/12/22 mg tablet albuterol sulfate 90 mcg/actuation 2 puff inhalation Q ID PRN 06/24/24 aerosol inhaler shortness of breath or wheez ing #8.5 grams ibuprofen 800 mg tablet 800 mg PO Q6H PRN pain #10 t abs 06/24/24 promethazine-DM 6.25 mg-15 mg/5 mL 5 ml PO Q6H PRN cou gh #118 mL 06/24/24 oral syrup isosorbide dinitrate 30 mg tablet 30 mg PO DAILY #30 t abs 02/03/25 nitroglycerin 0.4 mg sublingual 0.4 mg buccal [id number] PRN 02/03/25 tablet (Nitrostat) SUSTAINED cHEST PAIN #30 tab s Allergies Allergy/AdvReac Type Severity Reaction Status Date / Time Penicillins Allergy Severe DIFF Verified 06/24/24 11:34 BREATHING, RASH Review of Systems Review of Systems Systems Reviewed: All systems reviewed, normal except as documented Past Medical History Past Medical History CARDIAC: Positive Cardiac Disorders, Hypercholesterolemia and Hypertension GASTROINTESTINAL: Positive Gastrointestinal Disorders, Gall Bladder Disease, Gastrointestinal Bleed, Ulcer, Gastroesophageal Reflux Disease and Obesity REPRODUCTIVE: Positive Previous Pregnancies MUSCULOSKELETAL: Positive Musculoskeletal Disorders and Arthritis ENDOCRINE: Positive Endocrine Disorders, Hyperthyroidism and Hypothyroidism OTHER HISTORY: Positive Measles Family History FAMILY HISTORY: Positive Family Cardiac Disorders Surgical History SURGICAL: Positive Joint Replacement and Tubal Ligation ED Exam Narrative Physical exam: GEN. APPEARANCE: The patient is alert awake oriented X-3 under no distress, lying down comfortably, does not look ill/toxic. Patient has good eye contact. Patient is cooperative. VITALS: All vitals were reviewed and the pulse ox is 97%, which is normal according to my interpretation HEENT: Normocephalic, atraumatic and nontender. Pupils are equal and reactive. Oral mucosa is moist. NECK: Supple, nontender, no meningismus, no JVD. There is no thyromegaly and no lymphadenopathy. CHEST: No deformity and no crepitus. Chest wall demonstrated near-reproducible chest wall tenderness CARDIOVASCULAR: Heart regular rhythm, no murmur or gallop rub or extra beats. LUNGS: Clear to auscultation bilaterally with symmetrical chest rise. No laboring tachypnea or wheezing. No intercostal subcostal retraction. No rales and no rhonchi. ABDOMEN: Soft, flat, nontender to palpation, no guarding or rebound tenderness. There are no abnormal masses palpated. No pulsatile masses or bruits. Active and normal bowel sounds. EXTREMITIES: Normal inspection and palpation. No edema or palpable calf tenderness. No cyanosis. Patient is able to move all 4 extremities well SKIN: Warm and dry, no rashes noted. MUSCULOSKELETAL: No lumbar or midline bony tenderness. There is no CVA tenderness. No paraspinal muscle spasm or tenderness. NEURO: Cranial nerves II through XII grossly intact. There are no focal neurologic deficits noted. GCS is 15 PSYCHIATRIC: Patient is in normal mood and affect, cooperative. LYMPHATICS: No major lymphadenopathy noted. Course Quality Measures none Orders Category Date Time Status EKG (ED ONLY) *Do not use* NOW Care 02/02/25 23:46 Completed EKG (ED ONLY) *Do not use* NOW Care 02/03/25 00:01 Completed EKG (ED Only) Stat Exams 02/02/25 23:45 Draft EKG (ED Only) Stat Exams 02/03/25 00:01 Ordered XR chest 1V Stat Exams 02/03/25 00:01 Taken BNP [B-Type Natriuretic Peptide] Stat Lab 02/03/25 00:42 Completed CBC Stat Lab 02/03/25 00:42 Completed Comprehensive Metabolic Panel Stat Lab 02/03/25 00:42 Completed D-Dimer Stat Lab 02/03/25 00:42 Completed Troponin I Stat Lab 02/03/25 00:42 Completed Troponin I Stat Lab 02/03/25 03:38 Ordered Urinalysis Stat Lab 02/03/25 01:10 Completed Aspirin Med 02/03/25 04:00 Discontinued 325 mg PO X1 ONE Vital Signs Vital signs: Vital Signs Temperature 98.3 F 02/02/25 23:55 Pulse Rate 73 02/02/25 23:55 Respiratory Rate 20 02/02/25 23:55 Blood Pressure 124/80 02/02/25 23:55 Pulse Oximetry (%) 100 02/02/25 23:55 Oxygen Delivery Method Room Air 02/02/25 23:55 Chest Pain MDM Narrative MDM Narrative:: Scribe Attestation: Rabia Ware am scribing for and in the presence of Dr. Fournier. Provider Notation: Although this document has been carefully reviewed, there may still be some phonetic and other typographical errors. These errors are purely grammatical due to imperfections in the software program and should not be construed in any way to compromise the substance of the patient's medical care during this visit. Patient without preexisting cardiac disease now presents with episodic chest pain lasting approximately 15 minutes of intermittent nature. Notes pressure- like anterior chest discomfort with radiation to LUE. Please see PE findings. Laboratory markers including CBC and serum chemistries demonstrate normal CBC and slightly low potassium of 3.2 which was replaced orally. Troponin I was undetected. EKG demonstrates sinus rhythm without acute ischemic changes noted, no ventricular ectopy, no ST segment changes, axis leftward, per my interpretation. tissue specialist and underwent cardiac work-up and remained chest pain free throughout ED course with current heart score of 4. Patient treated with full-dose ASA and underwent serial enzymatic analysis. Will likely discharge to home and given heart score, will placed on long-acting nitrates. Close F/U with PMD for outpatient stress-testing within the next several weeks. Nitrostat prescribed for sustained chest pain. Pending repeat Troponin I. Patient data External records reviewed:: [facility] previous records (Reviewed prior ED records from 06/24/24. Patient was seen for Cough.) Clinical information provided by:: patient and family (Daughter) Social determinants that could affect healthcare access:: none Patient has the following chronic illnesses:: Hypercholesterolemia, Hypertension, Gall Bladder Disease, Gastrointestinal Bleed, Ulcer, Gastroesophageal Reflux Disease, Obesity, Arthritis, Hypothyroidism How is presenting disease/condition affected by chronic disease/condition?: exacerbated by Evaluation data The following diagnostics were reviewed and interpreted by me:: EKG tracing(s) (EKG demonstrates sinus rhythm without acute ischemic changes noted, no ventricular ectopy, no ST segment changes, axis leftward, per my interpretation.) Lab and/or radiology exams considered but not ordered:: None Interpretation Summary: RADIOLOGY Chest X-Ray: Pending official radiology report. Medications / Prescriptions Medications or Prescriptions considered but not ordered:: None Medication administrations:: Medication Administration History Discontinued Medications Aspirin (Aspirin 325 Mg Tablet) 325 mg PO X1 ONE Stop: 02/03/25 04:01 Last Admin: 02/03/25 04:08 Dose: 325 mg Documented By: AUBREY See above if any Consultations Consultation(s) initiated? (list below): No Diagnosis Chest Pain Differential Diagnosis: stable angina, unstable angina pectoris, atypical chest pain, st elevation myocardial infarction, costochondritis and chest pain Most likely diagnosis given after review of the tests above:: Non-specific chest pain Admission Indicated Admission indicated?: not indicated Explain why admission is indicated or not indicated:: Patient does not meet admission criteria Admission Request Was there a request for admission?: No Disposition Plan Disposition Plan: Discharge Discharge Attestation Discharge Attestation: The patient and all family members were given an opportunity to ask questions and understood the discharge instructions. Discharge instructions specifically effects, indications for sooner follow up or return to the emergency department, and the expected course of current diagnosis. Patient condition: Stable Discharge Plan Plan Patient Disposition: HOME (Self Care) Discharge Disposition comment: STABLE Prescriptions/Referrals Prescriptions/Med Rec: New nitroglycerin [Nitrostat] 0.4 mg tablet, sublingual 0.4 mg buccal [id number] PRN (Reason: SUSTAINED cHEST PAIN) Qty: 30 0RF isosorbide dinitrate 30 mg tablet 30 mg PO DAILY Qty: 30 0RF Rx Instructions: allow nitrate-free interval of 12-14 hrs per 24-hr period No Action atorvastatin 10 mg Tablet 10 mg PO QPM lisinopril 20 mg Tablet 20 mg PO QDAY levothyroxine 112 mcg Tablet 112 mcg PO QDAY nabumetone 500 mg Tablet 500 mg PO BID hydrocodone-acetaminophen 5-325 mg tablet 1 tab PO BID MDD 10 PRN (Reason: pain) Qty: 10 0RF promethazine-DM 6.25-15 mg/5 mL syrup 5 ml PO Q6H PRN (Reason: cough) Qty: 118 0RF ibuprofen 800 mg tablet 800 mg PO Q6H PRN (Reason: pain) Qty: 10 0RF albuterol sulfate 90 mcg/actuation HFA aerosol inhaler 2 puff inhalation QID PRN (Reason: shortness of breath or wheezing) Qty: 8.5 0RF Referrals: Seferino [facility] [Primary Care Provider] - In 1 week Problem List Clinical Impression: Nonspecific chest pain Patient/Caregiver Discharge Instructions Discharge Activity: activity as tolerated Diet Instructions: Low-salt/fat Education Materials: ED Chest Pain, Noncardiac Additional Instructions: Begin daily baby aspirin. Additionally will initiate 30 mg Imdur tablets daily. Recommend outpatient stress testing within the next Renea weeks and Nitrostat for sustained chest pain. Print Language: [employer] Stand Alone Forms: Dominique Award Info., Patient Portal Info Letter
[2025-02-03 05:55] LABS: Troponin I < 0.020 ng/mL (0.0-0.045)
[2025-02-03 06:03] VITALS: BP 145/83; PULSE 69; RESP 17; TEMP 36.4; O2SAT 98
== END 2025-02-03 06:11 | disposition home or self-care (01) ==
PROVIDERS: Nurse Practitioner Family; Emergency Provider Emergency Medicine; PCP Physician Assistant
DX: R07.9 Chest pain, unspecified (principal); E78.00 Pure hypercholesterolemia, unspecified; I10 Essential (primary) hypertension
CPT/HCPCS: 36415; 71045; 80053; 81001; 83880; 84484; 85025; 85379; 93005; 99282; A9270